=== PATIENT | female | born 1990 | race Caucasian/White ===

== ENCOUNTER → 2020-10-16 10:05 | Outpatient (CLI) | payer BC, SELFPAY ==
[2020-10-16] MEDS: COVID-19 VACC #1, MRNA(MOD) 100 MCG/0.5 ML VIAL IM (10:11)
== END ==
PROVIDERS: Visit Provider Internal Medicine
DX: Z23 Encounter for immunization (principal)
CPT/HCPCS: 0011A; 91301

== ENCOUNTER → 2020-11-14 10:07 | Outpatient (CLI) | payer BC, SELFPAY ==
[2020-11-14] MEDS: COVID-19 VACC #2, MRNA(MOD) 100 MCG/0.5 ML VIAL IM (10:14)
== END ==
PROVIDERS: Visit Provider Internal Medicine
DX: Z23 Encounter for immunization (principal)
CPT/HCPCS: 0012A; 91301

== ENCOUNTER 2021-11-09 20:13 | Outpatient (CLI) | payer BC, SELFPAY ==
--- NOTE | 2021-11-09 21:15 | P.HPOB_ITS ---
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
[2021-11-09 21:38] LABS: Add Manual Diff / Slide Review NO; Basophils Absolute Auto 100 /uL (0-100); Basophils Percent Auto 0.7 % (0-2); Eosinophils Absolute Auto 0 /uL (0-450); Eosinophils Percent Auto 0.1 % (2-4); Hematocrit 35.4 % (36-46); Hemoglobin 12.5 g/dL (12.0-16.0); Lymphocytes Absolute Auto 1300 /uL (1100-4500); Lymphocytes Percent Auto 7.4 % (25-40); Mean Corpuscular HGB Conc 35.2 % (30-36); Mean Corpuscular Hemoglobin 30.8 PG (26-34); Mean Corpuscular Volume 87.6 fL (80-100); Monocytes Absolute Auto 1400 /uL (0-900); Monocytes Percent Auto 7.6 % (3-14); Neutrophils Absolute Auto 15100 /uL (1500-7000); Neutrophils Percent Auto 84.2 % (50-75); Platelet Count 210 X10^3/uL (150-400); Red Blood Cell Count 4.05 X10^6/uL (4.0-5.2); Red Cell Distribution Width 13.7 % (11.6-14.8)
--- NOTE | 2021-11-09 21:42 | P.TNLD_ITS ---
Visit Information Visit Information Date of evaluation: 11/09/21 On-call OB Provider: Sandrine Varela Reason for Evaluation: Yes rule out labor Comments/Additional reasons for admission: This patient is a 31yo @38+3, managed by the [facility] due to the patient's multiple maternal cardiac abnormalities and presenting to [facility] for evaluation for labor. The patient reports that she has been having increasingly frequent and painful contractions since this AM, though reports good movement, no LOF or VB, no PIH symptoms, and no chest pain or trouble breathing. The patient reports that they stopped here en route to from Thursday for evaluation, and request discharge to continue to if she is not in labor. 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 furcation Supraventricular tachycardia Exam Const General: cooperative, healthy appearing, well groomed and anxious Resp Effort & Inspection: normal respiratory effort Auscultation: clear to auscultation bilaterally Cardio Rate: regular rate Rhythm: regular rhythm GI Palpation: soft and No tender Extrem General: normal to inspection Objective Labs Result Diagrams: 11/09/21 21:27 11/09/21 21:27 Labs: Laboratory Results - last 24 hr 11/09/21 21:27 WBC 18.0 H RBC 4.05 Hgb 12.5 Hct 35.4 L MCV 87.6 MCH 30.8 MCHC 35.2 RDW 13.7 Plt Count 210 Neut % (Auto) 84.2 H Lymph % (Auto) 7.4 L Sandoval % (Auto) 7.6 Eos % (Auto) 0.1 L Baso % (Auto) 0.7 Neut # (Auto) 40107 H Lymph # (Auto) 1300 Sandoval # (Auto) 1400 H Eos # (Auto) 0 Baso # (Auto) 100 Evaluation Evaluation Variability: Moderate (11-25) monitor accelerations: Present Monitor Decelerations: Absent Contraction Frequency (minutes): 6 Category of Tracing: Reactive Status: Category l Cervical effacement (%): 50 Comments: Cervical exam FT/50/-3, mid position Diagnosis, Plan/Disposition Plan/Disposition Plan: This patient is in latent labor, with persistent painful contractions though her cervical exam is unchanged from [place] earlier today. Her BPs are not elevated with an appropriately sized cuff though her PIH labs had already been sent, and status was reassuring. The patient and spouse request discharge to drive directly to [facility], as they assess this to be much faster than arranging ground transport which can take several hours, especially on nights and weekends. Precautions to stop along the way were stressed, and the patient and spouse vocalized understanding. OB Disposition: home
[2021-11-09 21:57] LABS: Alanine Aminotransferase 28 IU/L (<35); Albumin 3.4 g/dL (3.5-5.0); Albumin Globulin Ratio 1.1 (1.0-2.8); Alkaline Phosphatase 110 U/L (38-126); Aspartate Aminotransferase 73 IU/L (14-36); BUN Creatinine Ratio 18.1 (6-22); Bilirubin Total 0.9 mg/dL (0.2-1.3); Blood Urea Nitrogen 15 mg/dL (7-17); Calcium 8.9 mg/dL (8.4-10.2); Carbon Dioxide 19 mmol/L (22-32); Chloride 109 mmol/L (98-107); Estimated Glomerular Filt Rate > 60 mL/min (>60); Globulin 3.2 g/dL (1.7-4.1); Glucose 88 mg/dL (70-100); HEMOLYSIS < 15 (0-50); Lactate Dehydrogenase 456 U/L (313-618); Potassium 3.9 mmol/L (3.4-5.1); Sodium 137 mmol/L (137-145); Total Protein 6.6 g/dL (6.3-8.2); Uric Acid 7.3 mg/dL (2.5-6.2)
[2021-11-09 22:18] LABS: Creatinine Urine Random 96.3 mg/dL; Protein (Total) Urine Random 16 mg/dL (0-12); Protein Creatinine Ratio Urine 0.16 GRAM/24H
== END 2021-11-09 22:23 | disposition home or self-care (01) ==
LOC: LABOR 22:17 → OB 11-18 09:24
PROVIDERS: Referring Provider Obstetrics & Gynecology; Visit Provider Obstetrics & Gynecology
DX: O47.1 False labor at or after 37 completed weeks of gestation (principal); Z3A.38 38 weeks gestation of pregnancy
CPT/HCPCS: 36415; 59025; 80053; 82570; 83615; 84156; 84550; 85025; G0378; G0379